=== PATIENT | female | born 1975 | race Caucasian/White ===

== ENCOUNTER → 2022-01-19 | Outpatient (CLI) | payer BC ==
[~2022-01-19] MED LIST: ACHD5005 PO; AMOX-355 PO; ASP81CT PO; CYAN10007 PO; FENO160T PO; KRIL1CAP16 PO; LISI1TAB PO; METO25TA PO; NIA500ERT PO; PRD20T PO
== END ==
LOC: CARD 15:00
PROVIDERS: ATTEND Internal Medicine Cardiovascular Disease
DX: I51.7 Cardiomegaly (principal); I25.10 Atherosclerotic heart disease of native coronary artery without angina pectoris
CPT/HCPCS: 93306

== ENCOUNTER → 2022-02-06 | Outpatient (CLI) | payer BC ==
[~2022-02-06] VITALS: Ht 182 cm; Wt 139.0 kg
[~2022-02-06] MED LIST changes: +CATHETER FLUSH 10 ML SYR IVP PRN; +REGADENOSON 0.4 MG/5 ML SYR (LEXISCAN) IV ONE
[2022-02-06 08:34] VITALS: BP 153/73
== END ==
LOC: CARD 07:30
PROVIDERS: ATTEND Internal Medicine Cardiovascular Disease
DX: I25.10 Atherosclerotic heart disease of native coronary artery without angina pectoris (principal)
CPT/HCPCS: 78452; 93017; A9502

== ENCOUNTER 2022-06-14 14:49 | Emergency (ER) | payer BC ==
[~2022-06-14] VITALS: Ht 182.8 cm; Wt 147.4 kg
[~2022-06-14 14:49] MED LIST changes: -CATHETER FLUSH 10 ML SYR IVP PRN; -REGADENOSON 0.4 MG/5 ML SYR (LEXISCAN) IV ONE
--- NOTE | 2022-06-14 15:26 | ED General ---
General Chief Complaint: General Problems/Pain Stated Complaint: LOW HEMOGLOBIN Nursing Triage Note: PT AMB TO [facility] WITH COMPLAINT OF LOW HGB. STATES HAD BLOOD DRAWN WEDNESDAY THROUGH DR ALVARADO AND WAS TOLD WEDNESDAY HER HGB WAS LOW. WAS TOLD BY PCP TO COME TO THE ER FOR EVALUATION Source of Information: Patient Exam Limitations: No Limitations History of Present Illness Date Seen by Provider: Jun 14, 2022 Time Seen by Provider: 15:07 Initial Comments [id number] female presents to the emergency department today for anemia. She is [address] Sabillon's office a couple months ago. This was rechecked and she got the results on Wednesday and she was down to a "7." Her only symptom is some mild fatigue. No shortness of breath, dizziness or lightheadedness. No bloody or dark stools and she had a colonoscopy in March 2022 which showed only 1 polyp. She has no hematuria or vaginal bleeding. She states she is here because she wants to get to the bottom of what is causing her anemia. she does have a follow-up appointment with Dr. Alvarado tomorrow All other systems reviewed and negative except documented per HPI. Voice recognition software was used to help create this chart Allergies and Home Medications Allergies Coded Allergies: amoxicillin (Verified Allergy, Unknown, 06/14/22) cephalexin (Verified Allergy, Unknown, 06/14/22) clavulanic acid (Verified Allergy, Unknown, 06/14/22) doxycycline (Unverified Allergy, Unknown, 01/19/22) levofloxacin (Verified Allergy, Unknown, 06/14/22) metronidazole (Verified Allergy, Unknown, 06/14/22) minocycline (Unverified Allergy, Unknown, 01/19/22) oxycodone (Unverified Allergy, Unknown, 01/19/22) Patient Home Medication List Home Medication List Reviewed: Yes Amoxicillin/Clavulanate K (Augmentin 500-125 Tablet) 1 Each Tablet, 1 EACH PO BID, (Reported) Entered as Reported by: LASHAUN SULTANA on 10/21/12 1431 Aspirin (Baby Aspirin Chewable Tablet) 81 Mg Chew, 81 MG PO HS, (Reported) Entered as Reported by: ALIDA MORALES on 10/18/12 0950 Cyanocobalamin (Vitamin B12) 1,000 Mcg Tablet.sa, 2,000 MCG PO DAILY, (Reported) Entered as Reported by: ALIDA MORALES on 10/18/12 0950 Fenofibrate (Fenofibrate 160 Mg) 160 Mg Tablet, 1 EACH PO DAILY, (Reported) Entered as Reported by: ALIDA MORALES on 10/18/12 0950 Hctz/Lisinopril (Lisinopril-Hctz 20-12.5 Mg Tab) 1 Each Tablet, 1 EACH PO DAILY, (Reported) Entered as Reported by: ALIDA MORALES on 10/18/12 0950 Hydrocodone Bit/Acetaminophen (Lortab 5 Mg Tablet) 1 Each Tablet, 1-2 EACH PO Q4H, (Reported) Entered as Reported by: LASHAUN SULTANA on 10/21/12 1431 Krill/Gay-3/Dha/Epa/Lipids (Gay-3 Krill Oil 300 Mg Sftg) 1 Each Capsule, 1 EACH PO DAILY, (Reported) Entered as Reported by: ALIDA MORALES on 10/18/12 0950 Metoprolol Succinate (Metoprolol Succinate Xl 25 Mg) 25 Mg Tab.sr.24h, 1 EACH PO HS, (Reported) Entered as Reported by: ALIDA MORALES on 10/18/12 0950 Niacin (Niaspan) 500 Mg Tablet.sa, 1,000 MG PO HS, (Reported) Entered as Reported by: ALIDA MORALES on 10/18/12 0950 Prednisone (Prednisone) 20 Mg Tab, 20 MG PO DAILY, (Reported) Entered as Reported by: LASHAUN SULTANA on 10/21/12 1431 Review of Systems Review of Systems Constitutional: no symptoms reported Past [id number] Hx Patient Social History Tobacco Use?: No Use of E-Cig and/or Vaping dev: No Substance use?: No Alcohol Use?: No Pt feels they are or have been: No Family Medical History Reviewed Nursing Family Hx No Pertinent Family Hx Physical Exam Vital Signs Vital Signs - First Documented 06/14/22 15:06 Temp 36.7 Pulse 72 Resp 16 B/P (MAP) 135/83 (100) Pulse Ox 99 O2 Delivery Room Air Capillary Refill : Less Than 3 Seconds Height, Weight, BMI Height: '" Weight: lbs. oz. kg; 44.00 BMI Method: General Appearance: No Apparent Distress, WD/WN HEENT: PERRL/EOMI, TMs Normal, Normal ENT Inspection, Pharynx Normal Neck: Full Range of Motion, Normal Inspection, Non Tender, Supple Respiratory: Chest Non Tender, Lungs Clear, Normal Breath Sounds, No Accessory Muscle Use, No Respiratory Distress Cardiovascular: Regular Rate, Rhythm, No Murmur, Normal Peripheral Pulses Gastrointestinal: Normal Bowel Sounds, No Organomegaly, No Pulsatile Mass, Non Tender, Soft Extremity: Normal Capillary Refill, Normal Inspection, Normal Range of Motion, Non Tender Neurologic/Psychiatric: Alert, Oriented x3 Skin: Normal Color, Warm/Dry Progress/Results/Core Measures Suspected Sepsis SIRS Temperature: Pulse: 72 Respiratory Rate: 16 Laboratory Tests 06/14/22 15:56: White Blood Count 8.9 Blood Pressure 135 /83 Mean: 100 Laboratory Tests 06/14/22 15:56: Creatinine 1.27, Platelet Count 405H, Total Bilirubin 0.3 Results/Orders Lab Results Laboratory Tests Test 06/14/22 15:56 Range/Units White Blood Count 8.9 4.3-11.0 10^3/uL Red Blood Count 3.85 3.80-5.11 10^6/uL Hemoglobin 7.1 L 11.5-16.0 g/dL Hematocrit 26 L 35-52 % Mean Corpuscular Volume 67 L 80-99 fL Mean Corpuscular Hemoglobin 18 L 25-34 pg Mean Corpuscular Hemoglobin Concent 27 L 32-36 g/dL Red Cell Distribution Width 18.3 H 10.0-14.5 % Platelet Count 405 H 130-400 10^3/uL Mean Platelet Volume 9.8 9.0-12.2 fL Immature Granulocyte % (Auto) 0 % Neutrophils (%) (Auto) 69 42-75 % Lymphocytes (%) (Auto) 20 12-44 % Monocytes (%) (Auto) 8 0-12 % Eosinophils (%) (Auto) 2 0-10 % Basophils (%) (Auto) 1 0-10 % Neutrophils # (Auto) 6.2 1.8-7.8 X 10^3 Lymphocytes # (Auto) 1.8 1.0-4.0 X 10^3 Monocytes # (Auto) 0.7 0.0-1.0 X 10^3 Eosinophils # (Auto) 0.1 0.0-0.3 10^3/uL Basophils # (Auto) 0.1 0.0-0.1 10^3/uL Immature Granulocyte # (Auto) 0.0 0.0-0.1 10^3/uL Sodium Level 137 135-145 MMOL/L Potassium Level 4.1 3.6-5.0 MMOL/L Chloride Level 105 98-107 MMOL/L Carbon Dioxide Level 22 21-32 MMOL/L Anion Gap 10 5-14 MMOL/L Blood Urea Nitrogen 19 H 7-18 MG/DL Creatinine 1.27 0.60-1.30 MG/DL Estimat Glomerular Filtration Rate 52 BUN/Creatinine Ratio 15 Glucose Level 145 H 70-105 MG/DL Calcium Level 9.0 8.5-10.1 MG/DL Corrected Calcium 9.1 8.5-10.1 MG/DL Total Bilirubin 0.3 0.1-1.0 MG/DL Aspartate Amino Transf (AST/SGOT) 12 5-34 U/L Alanine Aminotransferase (ALT/SGPT) 12 0-55 U/L Alkaline Phosphatase 55 40-136 U/L Total Protein 7.0 6.4-8.2 GM/DL Albumin 3.9 3.2-4.5 GM/DL My Orders Orders - JUDYZAYDA L DO Iron Tibc %Sat & Ferritin (06/14/22 15:19) Transferrin (06/14/22 15:19) Folic Acid (06/14/22 15:19) Vitamin B 12 (06/14/22 15:19) Cbc With Automated Diff (06/14/22 15:19) Comprehensive Metabolic Panel (06/14/22 15:19) Vital Signs/I&O 06/14/22 15:06 Temp 36.7 Pulse 72 Resp 16 B/P (MAP) 135/83 (100) Pulse Ox 99 O2 Delivery Room Air Capillary Refill : Less Than 3 Seconds Blood Pressure Mean: 100 Departure Communication (Admissions) Patient has a microcytic anemia. Her hemoglobin is 7.1 but her vital signs are completely normal without any tachycardia, hypotension. She has some mild chronic fatigue which predated her anemia. No shortness of breath. No indication of hemolysis or active bleeding. No indication for blood transfusion at this time. I have sent iron studies which will be followed up outpatient.She states understanding. She is discharged in stable condition. Impression Primary Impression: Anemia Qualified Codes: D64.9 - Anemia, unspecified Disposition: HOME, SELF-CARE Condition: Stable Departure-Patient Inst. Referrals: NEHEMIAS JOHN APRN (PCP/Family) Primary Care Physician Patient Instructions: Anemia, Possibly From Low Iron, Adult ED Add. Discharge Instructions: Your hemoglobin is 7.1 today. Given your minimal symptoms you do not require a blood transfusion at this time. Return to the emergency room immediately if you have any active bleeding, he is significantly short of breath or if your symptoms change in any way concerning to you. I have sent off iron studies today and you should have your primary doctor or Dr. Alvarado follow-up these. For now I would start taking iron supplement [id number] All discharge instructions reviewed with patient and/or family. Voiced understanding. ZAYDA KIM DO Jun 14, 2022 15:26
[2022-06-14 16:06] LABS: BASOPHILS # (AUTO) 0.1 10^3/uL (0.0-0.1); BASOPHILS % (AUTO) 1 % (0-10); EOSINOPHILS # (AUTO) 0.1 10^3/uL (0.0-0.3); EOSINOPHILS % (AUTO) 2 % (0-10); HEMATOCRIT 26 % (35-52); HEMOGLOBIN 7.1 g/dL (11.5-16.0); LYMPHOCYTES # (AUTO) 1.8 X 10^3 (1.0-4.0); LYMPHOCYTES % (AUTO) 20 % (12-44); MEAN CORPUSCULAR HEMOGLOBIN 18 pg (25-34); MEAN CORPUSCULAR HGB CONC 27 g/dL (32-36); MEAN CORPUSCULAR VOLUME 67 fL (80-99); MEAN PLATELET VOLUME 9.8 fL (9.0-12.2); MONOCYTES # (AUTO) 0.7 X 10^3 (0.0-1.0); MONOCYTES % (AUTO) 8 % (0-12); NEUTROPHILS # (AUTO) 6.2 X 10^3 (1.8-7.8); NEUTROPHILS % (AUTO) 69 % (42-75); PLATELET COUNT 405 10^3/uL (130-400); WHITE BLOOD COUNT 8.9 10^3/uL (4.3-11.0)
[2022-06-14 16:15] LABS: ALBUMIN 3.9 GM/DL (3.2-4.5); POTASSIUM 4.1 MMOL/L (3.6-5.0)
[2022-06-14 16:20] LABS: BILIRUBIN,TOTAL 0.3 MG/DL (0.1-1.0)
[2022-06-14 16:22] LABS: CREATININE SERUM 1.27 MG/DL (0.60-1.30)
[2022-06-14 16:35] VITALS: BP 129/81
== END 2022-06-14 16:35 | disposition home or self-care (01) ==
LOC: EDUNIT# 14:49 → ER 14:51
DX: D50.9 Iron deficiency anemia, unspecified (principal); I95.9 Hypotension, unspecified
CPT/HCPCS: 36415; 80053; 82607; 82728; 82746; 83540; 83550; 84466; 85025; 99281

== ENCOUNTER 2022-06-18 16:07 | Outpatient (CLI) | payer BC ==
[~2022-06-18] VITALS: Ht 182.8 cm; Wt 149.7 kg
[2022-06-18] MEDS ORDERED: AMLO-251 PO (16:43)
[2022-06-18] MEDS ORDERED: LISI20TA26 PO (16:43)
[2022-06-18] MEDS ORDERED: CARV25TA PO (16:43)
[2022-06-18] MEDS ORDERED: FLUT9.9S NS (16:43)
[2022-06-18] MEDS ORDERED: METF-865 PO (16:43)
[2022-06-18] MEDS ORDERED: MULT-1136 PO (16:43)
[2022-06-18] MEDS ORDERED: OMEP20TA56 PO (16:43)
[2022-06-18] MEDS ORDERED: CLOB15CR3 TP (16:43)
[2022-06-18] MEDS ORDERED: MELA5TAB21 PO (16:43)
[2022-06-18] MEDS ORDERED: INUL2TAB8 PO (16:43)
[2022-06-18] MEDS ORDERED: RT-ALBUINH INH (16:43)
== END 2022-06-18 16:51 | disposition home or self-care (01) ==
LOC: PREOP 16:07
PROVIDERS: ATTEND Surgery
DX: Z01.818 Encounter for other preprocedural examination (principal)

== ENCOUNTER 2022-06-19 11:20 | Day surgery (SDC) | payer BC ==
[2022-06-19] VITALS (11 sets, daily range): BP systolic 122–156; BP diastolic 55–70
[~2022-06-19] VITALS: Ht 182.8 cm; Wt 149.7 kg
[~2022-06-19 11:20] MED LIST changes: +AMLO-251 PO; +CARV25TA PO; +CLOB15CR3 TP; +FLUT9.9S NS; +INUL2TAB8 PO; +LISI20TA26 PO; +MELA5TAB21 PO; +METF-865 PO; +MULT-1136 PO; +OMEP20TA56 PO; +RT-ALBUINH INH
[2022-06-19] MEDS ORDERED: CLINDAMYCIN 600 MG/50 ML IVPB 50 ML IV ONE (11:45)
[2022-06-19 11:59] LABS: HEMOGLOBIN 7.1 g/dL (11.5-16.0)
[2022-06-19] MEDS ORDERED: LACTATED RINGERS 1,000 ML IV PRN (12:00)
[2022-06-19] MEDS ORDERED: 0.9% SODIUM CHLORIDE PF INJ 20 ML VIAL ONE (12:02)
[2022-06-19] MEDS ORDERED: HEParin (CENTRAL IV FLUSH) 500 UNIT/5 ML SYR ONE (12:02)
[2022-06-19] MEDS ORDERED: LIDOCAINE/EPI 1%-1:100,000 (XYLOCAINE) 20ML ONE (12:02)
[2022-06-19] MEDS ORDERED: NS IV 500 ML 500 ML ONE (12:36)
--- NOTE | 2022-06-19 12:36 | Progress Note-Pre Operative ---
Pre-Operative Progress Note Date H&P Reviewed: Jun 19, 2022 Time H&P Reviewed: 12:36 History & Physical: H&P Reviewed, Patient Examed, No changes noted Pre-Operative Diagnosis: Anemia and poor venous access HOLLEY CRAIN DO Jun 19, 2022 12:36
[2022-06-19] MEDS ORDERED: MIDAZOLAM 2 MG/2 ML (VERSED) VIAL ONE ×2 (12:51→13:11)
[2022-06-19] MEDS ORDERED: NS IV 500 ML 500 ML IV SCH (13:00)
[2022-06-19] MEDS ORDERED: PROPOFOL INJECTION 50 ML IV ONE (13:11)
[2022-06-19] MEDS ORDERED: LIDOCAINE/EPI 1%-1:100,000 (XYLOCAINE) 20ML INJ ONE (13:15)
[2022-06-19] MEDS ORDERED: 0.9% SODIUM CHLORIDE PF INJ 20 ML VIAL IV ONE (13:15)
[2022-06-19] MEDS ORDERED: HEParin (CENTRAL IV FLUSH) 500 UNIT/5 ML SYR INJ ONE (13:16)
--- NOTE | 2022-06-19 13:58 | Discharge Inst-Simple/Standard ---
Discharge Inst-Standard Patient Instructions/Follow Up Plan of Care/Instructions/FU: 2 weeks josé miguel Activity as Tolerated: No Discharge Diet: Regular Diet Other Inst to Patient Follow up Appt: Make appointment for 2 week. Instructions: No lifting greater than 10 pounds. No strenuous activity. May bathe in 24 hours do not get upper body wet (sponge bath). Keep dressing dry and intact. Use incentive spirometer at home as directed. No Smoking Skin/Wound Care: You have special glue over your incision that will fall off on it's own. Keep accessed bandaged, cancer center will change wednesday. Symptoms to Report: Appetite Changes, Extremity Discoloration, Numbness/Tingling, Swelling Increased, Bleeding Excessive, Eyesight Changes, Pain Increased, Urine Color Change, Constipation(Persistent), Fever over 101 degree F, Pain/Pressure in chest, Urinating Difficulty, Cough Up/Vomit Blood, Heart Beat Irreg/Pounding, Pain/Pressure in jaw, Vaginal Bleeding Increase, Cramps in feet or legs, Lightheadedness, Pain/Pressure in shoulder, Diarrhea(Persistent), Memory Changes Suddenly, Questions/Concerns, Weight gain consecutive days, Dizziness/Fainting, Nausea/Vomiting, Shortness of Breath, Weight gain over 2 pounds If questions or concerns contact your physician Or seek help at emergency department. HOLLEY CRAIN DO Jun 19, 2022 13:58
--- NOTE | 2022-06-19 13:59 | Progress Note-Post Operative ---
Post-Operative Progess Note Surgeon (s)/Tile Setter Supervisor (s) Surgeon HOLLEY CRAIN DO Tile Setter Supervisor: na Pre-Operative Diagnosis Anemia and poor venous access Post-Operative Diagnosis same Procedure & Operative Findings Date of Procedure 06/19/22 Procedure Performed/Findings PROCEDURE: Right internal jugular port placement using ultrasound guidance. COMPLICATIONS: None. INDICATIONS: The patient is a 46 year old female with poor venous access. Patient understands the risks and benefits of port placement and wished to proceed with the procedure. Consent was signed on the chart. PROCEDURE: The patient was taken to the operating suite, was prepped and draped in the sterile fashion. A surgical pause was performed. Ultrasound was used to locate the internal jugular vein. Once located anesthetic was infiltrated above it. Using micro-access kit, the right internal vein was accessed. Dark nonpulsatile blood was withdrawn. The wire was inserted. Fluoroscopy assured proper placement. The needle was removed. The micro-access dilator was advanced over the wire and the wire was removed. The regular wire was inserted and fluoroscopy assured proper placement. The wire was then secured. Local anesthetic was used to anesthetize from the neck for tunneling down to the right chest and for pocket creation. A 15 blade scalpel was used to make an incision over the right chest. Cautery was used to dissect down to the pectoral fascia. A pocket was created with blunt dissection. The dilator sheath was then advanced over the wire under fluoroscopy and the dilator and wire were removed. The [place]ong catheter was inserted through the sheath and the sheath was then removed. The [place] wire was removed. The catheter was then tunneled to the right chest pocket. Fluoroscopy was used to cut to length and this was then attached to the port which was then placed within the pocket. The port was then accessed without difficulty. It was then flushed with saline and then heparin. The subcutaneous tissues were then reapproximated using 3-0 Vicryl. The areas were then washed and dried. Skin Affix was placed over incision. The insertion point of the neck Skin Affix was placed over the incision. The patient tolerated the procedure well without complication and was taken to recovery room in stable condition. Chest x-ray is pending. Anesthesia Type mac c local Estimated Blood Loss Estimated blood loss (mL): min Specimens/Packing Specimens Removed HOLLEY Herbert DO Jun 19, 2022 13:59
--- NOTE | 2022-06-19 14:18 | Diagnostic Imaging Report ---
INDICATION: Port-A-Cath placement. Portable chest obtained at 01:59 p.m. FINDINGS: There is cardiomegaly. There is a right-sided chest port, with its catheter into the right internal jugular vein catheter tip overlying the upper SVC. There is no pneumothorax or pleural fluid. There is no focal infiltrate. IMPRESSION: Cardiomegaly. Port-A-Cath is above with no pneumothorax or pleural fluid following device placement. Dictated by: Dictated on workstation # [id number]
--- NOTE | 2022-06-19 14:21 | Anesthesia-General Post-Op ---
MAC Patient Condition Mental Status/LOC: Same as Preop Cardiovascular: Satisfactory Nausea/Vomiting: Absent Respiratory: Satisfactory Pain: Controlled Complications: Absent Post Op Complications Complications None Follow Up Care/Instructions Patient Instructions None needed. Anesthesiology Discharge Order Discharge Order Patient is doing well, no complaints, stable vital signs, no apparent adverse anesthesia problems. No complications reported per nursing. LUDA PARHAM 10, 2023 14:21
--- NOTE | 2022-06-19 17:25 | Diagnostic Imaging Report ---
INDICATION: Port-A-Cath placement Intraoperative fluoroscopy view obtained during Port-A-Cath placement in surgery. Single view obtained, 19.4 seconds of fluoroscopy time was used. Intraoperative fluoroscopy view demonstrates Port-A-Cath over the right chest with catheter in the right internal jugular vein and catheter tip overlying the upper SVC. The study is otherwise limited. IMPRESSION: Intraoperative view demonstrates Port-A-Cath placement as above. Dictated by: Dictated on workstation # [id number]
== END 2022-06-19 15:55 ==
LOC: SDC 11:20
PROVIDERS: ATTEND Surgery
DX: I87.2 Venous insufficiency (chronic) (peripheral) (principal); D50.9 Iron deficiency anemia, unspecified; Z87.891 Personal history of nicotine dependence
CPT/HCPCS: 36430; 36561; 71045; 76000; 82947; 85014; 85018; 86850; 86900; 86901; 86920; 87081; C1788; P9016; 36415

== ENCOUNTER → 2022-09-01 | Outpatient (CLI) | payer BC | LOC: RAD 10:20 | PROVIDERS: ATTEND Internal Medicine | DX: Z12.31 Encounter for screening mammogram for malignant neoplasm of breast (principal) | CPT/HCPCS: 77063; 77067 ==